=== PATIENT | male | born 1935 | race Caucasian/White ===

== ENCOUNTER 2018-10-22 15:17 | Emergency (ER) | payer OTHER ==
[~2018-10-22] VITALS: Ht 182.9 cm; Wt 86.2 kg
[2018-10-22] MEDS ORDERED: cloNIDine HCL 0.1 MG TAB PO ONE (16:00)
[2018-10-22 17:33] LABS: Urine Blood 3+ /uL (Negative); Urine Specific Gravity 1.009 (1.001-1.035); Urine WBC 30 /hpf (0 - 3)
[2018-10-22 17:35] LABS: Urine Bacteria NONE SEEN /hpf (None Seen)
[2018-10-22 17:50] LABS: INR 1.2 (0.9-1.15); Prothrombin Time 12.7 sec (9.27-12.13)
[2018-10-22 19:27] VITALS: BP 142/73
[2018-10-22] MEDS ORDERED: HYDROcodone-ACET 10/325MG TAB PO ONE (19:30)
== END 2018-10-22 19:33 | disposition home or self-care (01) ==
LOC: ER 15:29
DX: N39.0 Urinary tract infection, site not specified (principal); I48.91 Unspecified atrial fibrillation; E78.5 Hyperlipidemia, unspecified; I10 Essential (primary) hypertension; Z85.46 Personal history of malignant neoplasm of prostate; Z87.891 Personal history of nicotine dependence
CPT/HCPCS: 36415; 51702; 81001; 85610; 85730

== ENCOUNTER → 2018-10-23 | Emergency (ER) | payer OTHER | END | disposition left against medical advice (07) | LOC: ER 00:38 | DX: R10.9 Unspecified abdominal pain (principal); Z53.21 Procedure and treatment not carried out due to patient leaving prior to being seen by health care provider ==

== ENCOUNTER 2020-08-17 14:17 | Inpatient (IN) | payer OTHER ==
[~2020-08-17] VITALS: Ht 167.6 cm; Wt 82.8 kg
[2020-08-17] MEDS ORDERED: PROPOFOL 0 ML IV ONE (14:26)
[2020-08-17] MEDS ORDERED: MIDAZOLAM DRIP 50 mg/50mL 0 ML IV ONE (14:26)
[2020-08-17] MEDS ORDERED: SODIUM CHLORIDE 0.9% 1,000 ML IV ONE (14:45)
[2020-08-17 16:31] LABS: Hemoglobin 9.4 g/dL (13.5-17.5); Mean Corpuscular Hemoglobin 29.7 pg (28.0-32.0); Mean Corpuscular Hgb Conc. 33.6 g/dL (32.0-36.0); Mean Corpuscular Volume 88.3 fL (80.0-100.0); Platelet Count (auto) 104 10^3/uL (140-450); Red Blood Cells 3.17 10^6/uL (4.5-5.90); Red Cell Distribution Width 18.9 % (11.8-14.3); White Blood Cell 17.9 10^3/uL (4.4-10.8)
[2020-08-17 16:34] LABS: INR 1.34 (0.9-1.15); Partial Thromboplastin Time 46.1 sec (23.0-31.2)
[2020-08-17 16:35] LABS: Albumin 2.1 g/dL (3.4-5.0); Calcium 7.6 mg/dL (8.5-10.1); Potassium 3.3 mmol/L (3.5-5.1)
[2020-08-17 16:37] LABS: Basophils % (manual) 0 (0.0-2.0); Blast Cells 0; Eosinophils % (manual) 0 (0-7); Promyelocytes % 0; Reactive Lymphocytes 0
[2020-08-17 16:42] LABS: BUN/Creatinine Ratio 20.3; Total Protein 4.8 g/dL (6.4-8.2)
[2020-08-17] MEDS ORDERED: ENOXAPARIN SOD 80 MG/0.8ML SYRINGE SC ONE (17:45)
[2020-08-17] MEDS: NOREPINEPHRINE 8 MG/250ML KIT 250 ML IV SCH (18:11)
[2020-08-17 18:30] LABS: Band Neutrophils % (manual) 16; Lymphocytes % (manual) 1 (10.0-50.0); Metamyelocytes % 3; Monocytes % (manual) 4 (0-12); Myelocytes % 1
[2020-08-17] MEDS ORDERED: POTASSIUM CHL 20MEQ/100ML 100 ML IV ONE (19:15)
[2020-08-17] MEDS ORDERED: NITROGLYCERIN 0.4 MG SL TAB SL PRN ×2 (19:15→21:00)
[2020-08-17] MEDS ORDERED: MORPHINE SULF INJ 2 MG/ML SYRINGE 1ML IV PRN ×3 (19:15→21:00)
[2020-08-17] MEDS ORDERED: DABI1CAP PO (19:24)
[2020-08-17] MEDS ORDERED: ATOR80TA PO (19:24)
[2020-08-17] MEDS ORDERED: HCTZ25T PO (19:24)
[2020-08-17] MEDS ORDERED: OMEP20TA PO (19:30)
[2020-08-17] MEDS ORDERED: MULT-1066 PO (19:30)
[2020-08-17] MEDS ORDERED: CYAN1TAB11 PO (19:30)
[2020-08-17] MEDS ORDERED: MORP1TAB12 PO (19:30)
[2020-08-17] MEDS ORDERED: CHOL100029 PO (19:30)
[2020-08-17] MEDS ORDERED: DOCU100T7 PO (19:30)
[2020-08-17] MEDS ORDERED: POTA10TA75 PO (19:30)
[2020-08-17] MEDS ORDERED: MIRA25TA PO (19:30)
[2020-08-17] MEDS ORDERED: FERR-7 PO (19:30)
[2020-08-17] MEDS ORDERED: HYDR-531 PO (19:30)
[2020-08-17] MEDS ORDERED: COLC1CAP PO (19:30)
[2020-08-17] MEDS ORDERED: FAMO40TA7 PO (19:31)
[2020-08-17] MEDS ORDERED: VANCOMYCIN PER PHARMACY 0 MG IV SCH (21:00)
[2020-08-17] MEDS ORDERED: LORazepam 0.5 MG TAB PO PRN (21:00)
[2020-08-17] MEDS ORDERED: ALUM & MAG HYDROX-SIMETH LIQ(MAALOX) 30 ML PO PRN (21:00)
[2020-08-17] MEDS ORDERED: SODIUM CHLORIDE 0.9% 1,000 ML IV SCH (21:00)
[2020-08-17] MEDS ORDERED: ACETAMINOPHEN 325 MG TAB PO PRN (21:00)
[2020-08-17] MEDS ORDERED: LACTATED RINGER'S 1,000 ML IV ONE (21:00)
[2020-08-17] MEDS ORDERED: CHOLECALCIFEROL (VITD3) 2,000 UNIT CAP PO ONE (21:15)
[2020-08-17] MEDS ORDERED: MULTIPLE VITAMIN TAB PO ONE (21:15)
[2020-08-17] MEDS ORDERED: POTASSIUM CHL 20 Meq TABLET PO ONE (21:15)
[2020-08-17] MEDS ORDERED: CYANOCOBALAMIN 500 MCG TAB PO ONE (21:15)
[2020-08-17] MEDS ORDERED: ALBUMIN 25% 100 ML IV ONE (21:15)
[2020-08-17] MEDS ORDERED: levoFLOXacin 500MG 100 ML IV ONE (21:30)
[2020-08-17] MEDS ORDERED: ATORVASTATIN 20 MG TAB PO SCH (22:00)
[2020-08-17] MEDS ORDERED: AMIODARONE 450mg/250ml AE 250 ML IV ONE (22:57)
[2020-08-17] MEDS ORDERED: AMIODARONE HCL (50 MG/ ML) 3 ML VIAL IV ONE (22:57)
[2020-08-17] MEDS ORDERED: VANCOMYCIN 1GM/250ML 250 ML IV ONE (23:00)
[2020-08-17] MEDS ORDERED: AMIODARONE 450mg/250ml AE 250 ML IV SCH (23:15)
[2020-08-17] MEDS ORDERED: AMIODARONE HCL 150 MG in D5W 5% 100 ML IV ONE (23:15)
[2020-08-17] MEDS: FAMOTIDINE (10MG/ML) 2ML VL IV SCH (23:22)
[2020-08-17] MEDS: FERROUS SULFATE 300 MG/5 ML ORAL LIQ PO SCH (23:22)
[2020-08-17] MEDS: OXYBUTYNIN CHL 5 MG TAB PO SCH (23:22)
[2020-08-18 02:32] LABS: Urine Amorphous Crystal FEW /hpf (None Seen); Urine Bacteria MANY /hpf (None Seen); Urine Blood 3+ /uL (Negative); Urine Mucus FEW (None Seen); Urine Specific Gravity 1.017 (1.001-1.035); Urine WBC 1447 /hpf (0 - 3); Urine WBC Clumps PRESENT /hpf (None Seen)
[2020-08-18 02:48] LABS: Amphetamine Screen, Urine NEGATIVE (NEGATIVE); Barbiturate Scree,Urine NEGATIVE (NEGATIVE); Benzodiazephine Screen, Urine NEGATIVE (NEGATIVE); Cannabinoid Screen, Urine NEGATIVE (NEGATIVE); Cocaine Screen, Urine NEGATIVE (NEGATIVE); Opiate Scree,Urine POSITIVE (NEGATIVE); Phencyclidine Screen, Urine NEGATIVE (NEGATIVE)
[2020-08-18 02:57] LABS: Alcohol, Urine < 3.0 mg/dL (0-10)
[2020-08-18] MEDS: AMIODARONE 450mg/250ml AE 250 ML IV SCH ×3 (05:17→23:27)
[2020-08-18] MEDS: ALBUMIN 25% 100 ML IV SCH ×3 (05:30→13:50)
[2020-08-18] MEDS: FERROUS SULFATE 300 MG/5 ML ORAL LIQ PO SCH ×3 (06:03→22:39)
[2020-08-18 08:22] LABS: BUN/Creatinine Ratio 18.7; Calcium 7.4 mg/dL (8.5-10.1); Potassium 3.6 mmol/L (3.5-5.1)
[2020-08-18] MEDS: OXYBUTYNIN CHL 5 MG TAB PO SCH ×2 (09:37→22:39)
[2020-08-18] MEDS: MULTIPLE VITAMIN TAB PO SCH ×2 (09:37→09:55)
[2020-08-18] MEDS: CYANOCOBALAMIN 500 MCG TAB PO SCH ×2 (09:37→09:55)
[2020-08-18] MEDS: POTASSIUM CHL 20 Meq TABLET PO SCH ×2 (09:38→09:55)
[2020-08-18] MEDS: CHOLECALCIFEROL (VITD3) 2,000 UNIT CAP PO SCH ×2 (09:38→09:55)
[2020-08-18] MEDS ORDERED: levoFLOXacin 250MG 50 ML IV SCH (10:00)
[2020-08-18] MEDS: MEROPENEM 1GM IVPB 100 ML IV SCH ×2 (13:23→22:40)
--- NOTE | 2020-08-18 13:37 | NUR ---
Faxed clinical packet to [facility] [phone] requesting transfer, to their facility.
[2020-08-18] MEDS: ONDANSETRON HCL 4 MG/2 ML VIAL IV PRN (14:24)
--- NOTE | 2020-08-18 15:26 | NUR ---
08/18/20 1520 Called [facility] [phone] spoke with Terra food and beverage analyst, stated they received the transfer packet, Trinh HALLMAN has not started working on the transfer, Chart still being reviewed to see if the patient is stable for transfer. [facility] he is still in the ER bed 1025.
[2020-08-18] MEDS: NOREPINEPHRINE 8 MG/250ML KIT 250 ML IV SCH (17:47)
[2020-08-18 21:42] LABS: Lactic Acid w/Reflex 2.5 mmol/L (0.4-2.0)
[2020-08-19] MEDS: ONDANSETRON HCL 4 MG/2 ML VIAL IV PRN ×3 (00:42→23:42)
[2020-08-19] MEDS: FERROUS SULFATE 300 MG/5 ML ORAL LIQ PO SCH ×4 (06:11→22:24)
[2020-08-19 07:11] LABS: Hemoglobin 8.3 g/dL (13.5-17.5); Red Blood Cells 2.83 10^6/uL (4.5-5.90)
[2020-08-19 07:14] LABS: Hematocrit 25.3 % (41.0-53.0); Mean Corpuscular Hemoglobin 29.4 pg (28.0-32.0); Mean Corpuscular Volume 89.2 fL (80.0-100.0); Platelet Count (auto) 50 10^3/uL (140-450); Red Cell Distribution Width 19.7 % (11.8-14.3)
[2020-08-19 07:31] LABS: Basophils % (manual) 0 (0.0-2.0); Blast Cells 0; Eosinophils % (manual) 0 (0-7); Myelocytes % 0; Promyelocytes % 0; Reactive Lymphocytes 0
[2020-08-19 07:33] LABS: Albumin 2.4 g/dL (3.4-5.0); BUN/Creatinine Ratio 18.4; Calcium 7.1 mg/dL (8.5-10.1); Magnesium 1.8 mg/dL (1.6-2.6); Potassium 3.8 mmol/L (3.5-5.1)
[2020-08-19 07:38] LABS: Bilirubin, Total 1.4 mg/dL (0.2-1.0)
[2020-08-19 07:58] LABS: Band Neutrophils % (manual) 13; Lymphocytes % (manual) 4 (10.0-50.0); Metamyelocytes % 1; Monocytes % (manual) 3 (0-12)
[2020-08-19] MEDS ORDERED: SODIUM BICARBONATE 50ML VIAL 100 ML in D5W 5% 1,000 ML IV ONE (10:00)
[2020-08-19] MEDS ORDERED: MAGNESIUM SULFATE 1GM/100ML 100 ML IV ONE (11:15)
[2020-08-19] MEDS: MEROPENEM 500MG IVPB 50 ML IV SCH ×2 (14:13→21:57)
[2020-08-19 14:28] LABS: Hematocrit 25.2 % (41.0-53.0); Hemoglobin 8.2 g/dL (13.5-17.5); Mean Corpuscular Hemoglobin 28.5 pg (28.0-32.0); Mean Corpuscular Hgb Conc. 32.5 g/dL (32.0-36.0); Mean Corpuscular Volume 87.9 fL (80.0-100.0); Platelet Count (auto) 45 10^3/uL (140-450); Red Blood Cells 2.87 10^6/uL (4.5-5.90)
[2020-08-19 14:33] LABS: White Blood Cell 36.4 10^3/uL (4.4-10.8)
[2020-08-19 14:35] LABS: Basophils % (manual) 0 (0.0-2.0); Blast Cells 0; Calcium 7.1 mg/dL (8.5-10.1); Eosinophils % (manual) 0 (0-7); Metamyelocytes % 0; Myelocytes % 0; Potassium 3.6 mmol/L (3.5-5.1); Promyelocytes % 0; Reactive Lymphocytes 0
[2020-08-19 14:41] LABS: BUN/Creatinine Ratio 21.8
[2020-08-19 14:50] LABS: Band Neutrophils % (manual) 12; Lymphocytes % (manual) 8 (10.0-50.0); Monocytes % (manual) 5 (0-12)
--- NOTE | 2020-08-19 15:30 | NUR ---
08/19/20 1530 Called [facility] and spoke with Trish java programmer analyst, stated per Mary Ellen Quigley CM, still reviewing the chart regarding the transfer and gave in patient auth for 08/20/2020 @ 1000am #[id number]
[2020-08-19] MEDS: CHOLECALCIFEROL (VITD3) 2,000 UNIT CAP PO SCH (16:12)
[2020-08-19] MEDS: CYANOCOBALAMIN 500 MCG TAB PO SCH (16:12)
[2020-08-19] MEDS: OXYBUTYNIN CHL 5 MG TAB PO SCH ×2 (16:13→22:23)
[2020-08-19] MEDS: MULTIPLE VITAMIN TAB PO SCH (16:13)
--- NOTE | 2020-08-19 16:27 | NUR ---
Received a call from the patients daughter Key stating that she has not been able to talk to anyone in the ER about her Dad, and ask if we could get him a room because he has fortunato lying on the gurney for3 days. Stated to her I will transfer the call to the call the ER and she can talk with the nurse. Transferred the call to the Er and spoke with the nurse Wick, explain to her the daughter concerns, stated the patient has been downgraded to [facility], but there are no beds, stated she will try and get him a hospital bed, Stated she will call the daughter on the other phone gave number [phone]. Hung up from the nurse and told the patient that the Nurse Wick will call her in a few minutes
--- NOTE | 2020-08-19 16:38 | NUR ---
SWALLOW EVALUATED. PATIENT HAS NATURAL TEETH UPPER AND LOWER. PATIENT ABLE TO FOLLOW ONE STEP COMMANDS. PATIENT ABLE TO TOLERATE MECHANICAL SOFT DIET TEXTURE WITH THIN LIQUIDS WITH NO OVERT SIGNS OR SYMPTOMS OF ASPIRATIONS. NURSING NOTIFIED.
[2020-08-19] MEDS: FAMOTIDINE (10MG/ML) 2ML VL IV SCH (22:23)
[2020-08-19] MEDS: AMIODARONE HCL 200 MG TAB PO SCH (22:23)
[2020-08-19 23:14] VITALS: BP 141/76
--- NOTE | 2020-08-19 23:14 | NUR ---
Telemetry admit from [facility] admitted to Telemetry unit. Patient oriented to TRES LEMON RN primary RN, unit, room, bed, and unit policies regarding patient care and visiting hours. Patient now on continuous telemetry monitoring, tele box #50 and telemetry reading on arrival to unit is 64. Patient placed on bedside oxygen 2liters via nasal cannula weighed by bedscale and encouraged to call if they need something. safety measures in place bed in lowest position side rails up x2 and call light with in reach. All questions and concerns addressed, patient verbalized understanding.
[2020-08-19 23:20] VITALS: BP 141/76
[2020-08-20 05:00] VITALS: BP 117/69
[2020-08-20 07:23] LABS: Hematocrit 25.5 % (41.0-53.0); Hemoglobin 8.6 g/dL (13.5-17.5); Mean Corpuscular Hemoglobin 29.4 pg (28.0-32.0); Mean Corpuscular Hgb Conc. 33.8 g/dL (32.0-36.0); Platelet Count (auto) 48 10^3/uL (140-450); Red Blood Cells 2.93 10^6/uL (4.5-5.90); Red Cell Distribution Width 19.9 % (11.8-14.3); White Blood Cell 23.8 10^3/uL (4.4-10.8)
[2020-08-20 07:27] LABS: INR 1.03 (0.9-1.15)
[2020-08-20 07:35] LABS: Basophils % (manual) 0 (0.0-2.0); Blast Cells 0; Eosinophils % (manual) 0 (0-7); Metamyelocytes % 0; Myelocytes % 0; Promyelocytes % 0; Reactive Lymphocytes 0
[2020-08-20 07:37] LABS: Potassium 3.3 mmol/L (3.5-5.1)
--- NOTE | 2020-08-20 07:40 | NUR ---
RECEIVED PATIENT FROM NOC SHIFT RN, AWAKE, ALERT AND ORIENTED X4. DENIES PAIN, NO SOB OR S/S DISTRESS NOTED. PLAN OF CARE DISCUSSED. ENCOURAGED PATIENT TO CALL FOR ASSISTANCE PRN, BED IN LOCKED AND LOWEST POSITION WITH CALL LIGHT WITHIN REACH BENSON CATHETER DRAINING AND INTACT BELOW BLADDER W/O KINKS. WILL CONTINUE TO MONITOR Q1HR AND PRN
[2020-08-20 07:45] LABS: Albumin 2.3 g/dL (3.4-5.0); BUN/Creatinine Ratio 20.9; Bilirubin, Total 0.9 mg/dL (0.2-1.0); Calcium 7.5 mg/dL (8.5-10.1); Magnesium 2.3 mg/dL (1.6-2.6)
[2020-08-20 07:58] VITALS: BP 131/69
[2020-08-20 08:00] VITALS: BP 131/69
[2020-08-20 08:20] LABS: Band Neutrophils % (manual) 3; Lymphocytes % (manual) 4 (10.0-50.0); Monocytes % (manual) 4 (0-12)
[2020-08-20] MEDS: OXYBUTYNIN CHL 5 MG TAB PO SCH ×2 (09:20→22:56)
[2020-08-20] MEDS: AMIODARONE HCL 200 MG TAB PO SCH ×2 (09:20→22:56)
[2020-08-20] MEDS: MULTIPLE VITAMIN TAB PO SCH (09:21)
[2020-08-20] MEDS: CYANOCOBALAMIN 500 MCG TAB PO SCH (09:21)
[2020-08-20] MEDS: CHOLECALCIFEROL (VITD3) 2,000 UNIT CAP PO SCH (09:21)
[2020-08-20] MEDS: MEROPENEM 500MG IVPB 50 ML IV SCH ×2 (09:33→22:56)
--- NOTE | 2020-08-20 09:55 | NUR ---
PARTIAL BED CHANGE. BOWEL MOVEMENT NOTED WITH DARK LOOSE STOOL.
--- NOTE | 2020-08-20 11:00 | NUR ---
DR GEORGES AT BEDSIDE, DISCUSSED PLAN TO TRANSFER PATIENT TO [facility]. PT. VERBALIZED UNDERSTANDING.
[2020-08-20] MEDS ORDERED: POTASSIUM CHL 20 Meq TABLET PO ONE (11:45)
[2020-08-20] MEDS: SODIUM CHLORIDE 0.9% 1,000 ML IV SCH (12:00)
[2020-08-20] MEDS: Ensure HIGH Protein Chocolate 8oz Bottle PO SCH ×2 (12:00→18:30)
--- NOTE | 2020-08-20 12:17 | NUR ---
08/20/20 1217 Faxed clinical packet to [facility] [phone] requesting transfer to [facility] with post stabilization form.
--- NOTE | 2020-08-20 12:25 | NUR ---
Received a call from Emma at [facility] [phone], asking if I would fax clinicals to her because she had not received anything yet, verbalized understanding and gave update verbal report on the patient and faxed clinicals as requested. Addendum: 08/20/20 at 1427 by Ching Monsivais RN, CM disregard wrong patient
[2020-08-20 12:30] VITALS: BP 155/74
--- NOTE | 2020-08-20 13:45 | NUR ---
Called Emma HALLMAN at [facility] [phone] and stated she received the clinicals but wanted the er notes to see if it showed the elevated Hr on the patient, stated I would fax. Addendum: 08/20/20 at 1428 by Ching Monsivais RN, CM disregard wrong patient
[2020-08-20] MEDS: FERROUS SULFATE 300 MG/5 ML ORAL LIQ PO SCH ×2 (14:02→22:56)
--- NOTE | 2020-08-20 14:46 | NUR ---
Nutrition consult/assessment Notes please see attached link for complete assessment. [employer] needs BW 86 [id number] kcals (23-25 kcal/kgBW), Est Protein needs: 86-94 gms/day (1.0-1.1 gm/kgBW) d/t pt elev RFTs. Will continue to monitor and reassess prn. Addendum: 08/20/20 at [address] Amended: Links added.
--- NOTE | 2020-08-20 16:01 | NUR ---
Assessment Patient is an 84-year-old male, patient is alert and oriented. Patient cognitive abilities are intact. Patient stated that he can do all ADLs independently, patient stated that he uses a walker for ambulation. Patient stated that he started to feel weak a few days ago. Patient stated that he receives social security as income. Patient stated that he lives with his (Gela [phone]) and daughter Mary Ellen. Patient stated that he will return home post discharge. Patient stated that his daughter has transportation post discharge. Patient stated that he receptive to receive Advance Directive forms to fill out. Discharge planning: SW will provide Advance Directive forms to patient. SW will put in for home health for Physical Therapy and possibly IV or PO therapy for sepsis diagnosis. Addendum: 08/20/20 at 1602 by DOC BEATTY Amended: Links added.
[2020-08-20 16:15] VITALS: BP 113/69
--- NOTE | 2020-08-20 16:15 | NUR ---
08/20/20 161Cristina Called [facility] [phone] and spoke with Jason it architecture analyst, stated one of the CM'S called in today so they are short. Stated he will assign the transfer to [facility] to work on the transfer, stated they will send the paper auth if the patient doesn't get transferred ton[facility]red[facility].
[2020-08-20] MEDS: HYDROcodone-ACET 5/325MG TAB PO PRN (18:34)
[2020-08-20 22:00] VITALS: BP_SYST 113; BP_SYST 115; BP_DIAS 51; BP_DIAS 64
--- NOTE | 2020-08-21 00:50 | NUR ---
IV insertion IV access obtained, via clean sterile technique by inserting 22 gauge catheter at left forearm after 1 attempt. IV secured properly. No trauma to site. Patient tolerated procedure well. Will continue to monitor patient Q1 and PRN. Addendum: 08/22/20 at 0405 by Dahlia Gomez RN DATE 08/22/2020 TIME 0050
[2020-08-21 05:15] VITALS: BP 103/64
[2020-08-21 06:51] LABS: Hemoglobin 8.2 g/dL (13.5-17.5); Red Blood Cells 2.73 10^6/uL (4.5-5.90)
[2020-08-21 06:56] LABS: Hematocrit 23.9 % (41.0-53.0); Mean Corpuscular Hemoglobin 30.1 pg (28.0-32.0); Mean Corpuscular Hgb Conc. 34.3 g/dL (32.0-36.0); Mean Corpuscular Volume 87.7 fL (80.0-100.0); Platelet Count (auto) 45 10^3/uL (140-450); Red Cell Distribution Width 19.8 % (11.8-14.3); White Blood Cell 18.9 10^3/uL (4.4-10.8)
[2020-08-21] MEDS: FERROUS SULFATE 300 MG/5 ML ORAL LIQ PO SCH ×3 (06:57→22:22)
[2020-08-21 07:05] LABS: Basophils % (manual) 0 (0.0-2.0); Blast Cells 0; Metamyelocytes % 0; Myelocytes % 0; Promyelocytes % 0; Reactive Lymphocytes 0
--- NOTE | 2020-08-21 07:05 | NUR ---
OPENING SHIFT NOTE ASSUMED CARE OF PATIENT FROM SENIOR ASSOCIATE RN MANJINDER. PATIENT IS AWAKE, ALERT, AND ORIENTED X4. PATIENT HAS NO S/S OF DISTRESS/SOB OR PAIN. INSTRUCTED PATIENT ON POC, PATIENT VERBALIZED UNDERSTANDING. BED IS IN LOWEST POSITION WITH SIDE RAILS RAISED X2, BED WHEELS LOCKED, BENSON IS HANGING BELOW BLADDER AND IS DRAINING YELLOW URINE, AND CALL LIGHT IS WITHIN REACH. WILL CONTINUE TO MONITOR.
[2020-08-21 07:09] LABS: Potassium 3.7 mmol/L (3.5-5.1)
[2020-08-21 07:13] LABS: Calcium 7.7 mg/dL (8.5-10.1)
[2020-08-21 07:18] LABS: Bilirubin, Total 0.7 mg/dL (0.2-1.0); Total Protein 4.7 g/dL (6.4-8.2)
[2020-08-21 07:45] LABS: Band Neutrophils % (manual) 2; Eosinophils % (manual) 1 (0-7); Lymphocytes % (manual) 3 (10.0-50.0); Monocytes % (manual) 15 (0-12)
[2020-08-21] MEDS: Ensure HIGH Protein Chocolate 8oz Bottle PO SCH ×3 (08:00→17:34)
[2020-08-21 08:09] VITALS: BP 144/76
[2020-08-21 08:26] VITALS: BP 144/76
[2020-08-21] MEDS ORDERED: FUROSEMIDE 40 MG/4 ML VIAL IV ONE (09:45)
--- NOTE | 2020-08-21 09:45 | NUR ---
PATIENT TAKEN TO [facility]LE[facility] MEDICINE FOR MAG 3 SCAN VIA BED. PATIENT HAS NO S/S OF DISTRESS AT THIS TIME.
--- NOTE | 2020-08-21 09:46 | NUR ---
RECEIVED CALL FROM WHEEL ADJUSTER REBEKA. PER [facility] HOLD MORNING MEDICATIONS EXCEPT FOR AMIODARONE AND MEROPENEM.
[2020-08-21] MEDS: SODIUM CHLORIDE 0.9% 1,000 ML IV SCH (09:47)
[2020-08-21] MEDS: AMIODARONE HCL 200 MG TAB PO SCH ×2 (09:49→22:22)
[2020-08-21] MEDS: HYDROcodone-ACET 5/325MG TAB PO PRN (09:49)
[2020-08-21] MEDS: MEROPENEM 500MG IVPB 50 ML IV SCH ×2 (09:50→22:22)
[2020-08-21] MEDS: CYANOCOBALAMIN 500 MCG TAB PO SCH (10:00)
[2020-08-21] MEDS: CHOLECALCIFEROL (VITD3) 2,000 UNIT CAP PO SCH (10:00)
[2020-08-21] MEDS: OXYBUTYNIN CHL 5 MG TAB PO SCH ×2 (10:00→22:22)
[2020-08-21] MEDS: MULTIPLE VITAMIN TAB PO SCH (10:00)
--- NOTE | 2020-08-21 11:05 | NUR ---
RECEIVED CALL FROM [facility]. PER [facility] RIPSHEAR OPERATOR THEY DO NO NOT HAVE A BED AT THIS TIME. UPDATED THEM ON PATIENT'S STATUS. THEY WILL TRY TOMORROW FOR A BED.
--- NOTE | 2020-08-21 11:10 | NUR ---
PATIENT BACK FROM [facility]. PATIENT HAS NO S/S OF DISTRESS/SOB OR PAIN AT THIS TIME. WILL CONTINUE TO MONITOR.
--- NOTE | 2020-08-21 11:15 | NUR ---
08/21/20 1115 Called [facility] [phone] spoke with Chelsey quality assurance qa lab analyst stated they received clinicals, per Demian CM are still being reviewed, stated there are no TELE or ICU beds in [place] or [place] at this time.
--- NOTE | 2020-08-21 11:35 | NUR ---
MD GEORGES AT BEDSIDE UPDATED MD ON PATIENTS STATUS INCLUDING NO BED AT [facility] FOR TODAY. MD IS AWARE AND ORDERED PHYSICAL THERAPY FOR PATIENT.
[2020-08-21 13:00] VITALS: BP 122/50
[2020-08-21] MEDS ORDERED: POTASSIUM CHL 20 Meq TABLET PO ONE (14:45)
--- NOTE | 2020-08-21 15:04 | NUR ---
Faxed updated clinicals with Transfer Request to [facility] [phone], with order for transfer and post stabilization form.
[2020-08-21 17:00] VITALS: BP 103/56
--- NOTE | 2020-08-21 18:58 | NUR ---
CLOSING SHIFT NOTE PATIENT HAS NO S/S OF DISTRESS/SOB OR PAIN AT THIS TIME. WILL ENDORSE CARE TO MATERIALS HANDLING EQUIPMENT OPERATOR MADY DUNBAR.
[2020-08-21 22:00] VITALS: BP 129/78
[2020-08-21] MEDS: FAMOTIDINE (10MG/ML) 2ML VL IV SCH (22:22)
[2020-08-22] MEDS: HYDROcodone-ACET 5/325MG TAB PO PRN ×2 (00:49→19:47)
[2020-08-22] MEDS: SODIUM CHLORIDE 0.9% 1,000 ML IV SCH (04:00)
[2020-08-22 05:00] VITALS: BP 114/66
[2020-08-22 06:25] LABS: Hemoglobin 7.9 g/dL (13.5-17.5)
[2020-08-22] MEDS: FERROUS SULFATE 300 MG/5 ML ORAL LIQ PO SCH ×3 (06:27→22:57)
[2020-08-22 06:33] LABS: Hematocrit 24.1 % (41.0-53.0); Mean Corpuscular Hemoglobin 29.6 pg (28.0-32.0); Mean Corpuscular Hgb Conc. 32.9 g/dL (32.0-36.0); Mean Corpuscular Volume 89.9 fL (80.0-100.0); Platelet Count (auto) 62 10^3/uL (140-450); Red Blood Cells 2.68 10^6/uL (4.5-5.90); White Blood Cell 18.6 10^3/uL (4.4-10.8)
[2020-08-22] MEDS: DOCUSATE SOD 100 MG CAP PO PRN (06:37)
--- NOTE | 2020-08-22 06:55 | NUR ---
End of Shift Note Will endorse care to dayshift RN. At this time patient has no s/s of distress or SOB.
[2020-08-22 07:00] LABS: Albumin 1.9 g/dL (3.4-5.0); BUN/Creatinine Ratio 21.8; Calcium 7.7 mg/dL (8.5-10.1); Potassium 3.7 mmol/L (3.5-5.1)
[2020-08-22 07:05] LABS: Red Cell Distribution Width 20.4 % (11.8-14.3)
[2020-08-22 07:06] LABS: Basophils % (manual) 0 (0.0-2.0); Blast Cells 0; Promyelocytes % 0; Reactive Lymphocytes 0
[2020-08-22 07:09] LABS: Bilirubin, Total 0.6 mg/dL (0.2-1.0); Total Protein 4.7 g/dL (6.4-8.2)
--- NOTE | 2020-08-22 07:10 | NUR ---
OPENING SHIFT NOTE ASSUMED CARE OF PATIENT FROM INDUSTRIAL CLEANING TECHNICIAN RN MANJINDER. PATIENT IS AWAKE, ALERT, AND ORIENTED X4. PATIENT HAS NO S/S OF DISTRESS/SOB OR PAIN. INSTRUCTED PATIENT ON POC, PATIENT VERBALIZED UNDERSTANDING. BED IS IN LOWEST POSITION WITH SIDE RAILS RAISED X2, BED WHEELS LOCKED, BENSON IS HANGING BELOW BLADDER AND IS DRAINING YELLOW URINE, AND CALL LIGHT IS WITHIN REACH. WILL CONTINUE TO MONITOR.
[2020-08-22] MEDS: Ensure HIGH Protein Chocolate 8oz Bottle PO SCH ×3 (08:00→17:41)
[2020-08-22 09:00] VITALS: BP 113/65
[2020-08-22] MEDS: CHOLECALCIFEROL (VITD3) 2,000 UNIT CAP PO SCH (10:00)
[2020-08-22] MEDS: MEROPENEM 500MG IVPB 50 ML IV SCH (10:20)
[2020-08-22] MEDS: AMIODARONE HCL 200 MG TAB PO SCH ×2 (10:21→22:57)
[2020-08-22] MEDS: OXYBUTYNIN CHL 5 MG TAB PO SCH ×2 (10:21→22:57)
[2020-08-22] MEDS: CYANOCOBALAMIN 500 MCG TAB PO SCH (10:21)
[2020-08-22] MEDS: MULTIPLE VITAMIN TAB PO SCH (10:21)
--- NOTE | 2020-08-22 10:35 | NUR ---
MD PEOPLES AT BEDSIDE UPDATED MD ON PATIENT'S STATUS INCLUDING MAG 3 SCAN MD IS AWARE AND ORDERED NORMAL SALINE TO BE STOPPED. WILL FOLLOW THROUGH WITH ORDERS.
[2020-08-22 13:00] VITALS: BP 118/63
[2020-08-22 14:33] LABS: Band Neutrophils % (manual) 3; Eosinophils % (manual) 1 (0-7); Lymphocytes % (manual) 4 (10.0-50.0); Metamyelocytes % 3; Monocytes % (manual) 10 (0-12); Myelocytes % 1
[2020-08-22] MEDS ORDERED: PRADAXA 110 MG PO SCH (15:15)
[2020-08-22 17:00] VITALS: BP 127/80
--- NOTE | 2020-08-22 18:45 | NUR ---
CLOSING SHIFT NOTE PATIENT HAS NO S/S OF DISTRESS/SOB OR PAIN AT THIS TIME. WILL ENDORSE CARE TO KEY ACCOUNT DIRECTOR MADY WRIGHT.
--- NOTE | 2020-08-22 19:47 | NUR ---
open note assumed care of pt upon entering room pt awake and alert on 2L nc with no distress noted or expressed. pt oriented to this nurse and updated on plan of care. pt bed locked, low and 2x rails up. pt has mckeon in place, secured, below the waist and draining. pt call light in reach, encouraged to call as needed. this nurse to round q1hr and prn.
[2020-08-22 22:00] VITALS: BP 107/63
[2020-08-22] MEDS: PRADAXA 110 MG PO SCH (22:00)
[2020-08-22] MEDS: MEROPENEM 1GM IVPB 100 ML IV SCH (22:57)
[2020-08-23 05:00] VITALS: BP 136/71
[2020-08-23] MEDS: ONDANSETRON HCL 4 MG/2 ML VIAL IV PRN (05:10)
[2020-08-23] MEDS: FERROUS SULFATE 300 MG/5 ML ORAL LIQ PO SCH ×3 (06:30→21:24)
--- NOTE | 2020-08-23 07:06 | NUR ---
OPENING SHIFT NOTE ASSUMED CARE OF PATIENT FROM GOLD ASSAYER RN ADRIANA. PATIENT IS AWAKE, ALERT, AND ORIENTED X4. PATIENT HAS NO S/S OF DISTRESS/SOB OR PAIN. INSTRUCTED PATIENT ON POC, PATIENT VERBALIZED UNDERSTANDING. PATIENT'S HEELS HAVE BLANCHABLE REDNESS, POSIE BOOTS APPLIED BILATERALLY. BED IS IN LOWEST POSITION WITH SIDE RAILS RAISED X2, BED WHEELS LOCKED, BENSON IS HANGING BELOW BLADDER AND IS DRAINING YELLOW URINE, AND CALL LIGHT IS WITHIN REACH. WILL CONTINUE TO MONITOR.
[2020-08-23] MEDS: Ensure HIGH Protein Chocolate 8oz Bottle PO SCH ×3 (08:03→18:15)
[2020-08-23 09:00] VITALS: BP 121/71
[2020-08-23] MEDS: MULTIPLE VITAMIN TAB PO SCH (09:42)
[2020-08-23] MEDS: OXYBUTYNIN CHL 5 MG TAB PO SCH ×2 (09:42→21:25)
[2020-08-23] MEDS: AMIODARONE HCL 200 MG TAB PO SCH ×2 (09:42→21:25)
[2020-08-23] MEDS: CHOLECALCIFEROL (VITD3) 1,000UNIT=25mCg TAB PO SCH (09:43)
[2020-08-23] MEDS: CYANOCOBALAMIN 500 MCG TAB PO SCH (09:43)
[2020-08-23] MEDS: MEROPENEM 1GM IVPB 100 ML IV SCH ×2 (09:52→21:24)
[2020-08-23] MEDS: PRADAXA 110 MG PO SCH ×2 (09:56→21:25)
[2020-08-23 12:30] VITALS: BP 132/74
--- NOTE | 2020-08-23 14:22 | NUR ---
Nutrition Followup Note Wt 91.8kg Pt was sleeping with no family at bedside at time of rounds. Pt is with a fair appetite aeb pt with 67% po intake avg x 2 days per Rn note. Pt is also with Ensure HP TID. Pt is currently awaiting transfer to a SNF. Est Energy needs BW 86 [id number] kcals (23-25 kcal/kgBW), Est Protein needs: 86-94 gms/day (1.0-1.1 gm/kgBW) d/t pt elev RFTs. Will continue to monitor and reassess prn. Labs: Na 131L, BUN 37H, Creat 1.70H, Alb 1.9L, Ca 7.7L BM: Pt with 1 BMs 08/23 per Rn note Skin: BS 16 mod risk, full details in respite care provider note PES: Altered nutrition related lab values r.t current chronic medical conidtion aeb elev RFT mod hypoalb hypocalcemia Comments 1) consider ensure enlive 1 carton bid 2) consider megace if appetite is low 3) continue assistance with meals 4) continue current plan of care Expected Outcomes/Goals: pt will have improved labs F/u mod 3-5 days
[2020-08-23 17:00] VITALS: BP 139/69
--- NOTE | 2020-08-23 19:30 | NUR ---
ASSUMED CARE, PT. AWAKE, NO C/O PAIN, REPOSITIONED PT. NOT IN DISTRESS.
[2020-08-23] MEDS: FAMOTIDINE (10MG/ML) 2ML VL IV SCH (21:24)
[2020-08-23 21:40] VITALS: BP 106/71
[2020-08-24] MEDS: HYDROcodone-ACET 5/325MG TAB PO PRN (04:25)
[2020-08-24 05:00] VITALS: BP 144/76
[2020-08-24] MEDS: FERROUS SULFATE 300 MG/5 ML ORAL LIQ PO SCH ×3 (05:25→21:45)
[2020-08-24] MEDS: Ensure HIGH Protein Chocolate 8oz Bottle PO SCH ×2 (08:00→12:00)
--- NOTE | 2020-08-24 08:10 | NUR ---
Opening Shift Note Assumed care of patient, patient asleep, no s/s of distress/SOB. Nasal cannula in place at 2L. Call light within reach and bed at lowest position, will continue to monitor q1h.
[2020-08-24] MEDS: DOCUSATE SOD 100 MG CAP PO PRN (09:13)
[2020-08-24] MEDS: MULTIPLE VITAMIN TAB PO SCH (09:13)
[2020-08-24] MEDS: AMIODARONE HCL 200 MG TAB PO SCH ×2 (09:14→21:46)
[2020-08-24] MEDS: CYANOCOBALAMIN 500 MCG TAB PO SCH (09:15)
[2020-08-24] MEDS: OXYBUTYNIN CHL 5 MG TAB PO SCH (09:16)
[2020-08-24] MEDS: CHOLECALCIFEROL (VITD3) 1,000UNIT=25mCg TAB PO SCH (09:16)
[2020-08-24] MEDS: PRADAXA 110 MG PO SCH ×2 (09:17→21:45)
[2020-08-24] MEDS: MEROPENEM 1GM IVPB 100 ML IV SCH ×2 (09:18→21:45)
[2020-08-24 09:32] VITALS: BP_SYST 117; BP_SYST 125; BP_DIAS 73; BP_DIAS 82
--- NOTE | 2020-08-24 10:20 | NUR ---
DR. GEORGES AT BEDSIDE. PATIENT UPDATED ON POC, PER DOCTOR OXYBUTYNCHRISTIANO DC AND AWAITING A BED FOR PATIENT AT [facility].
[2020-08-24 10:54] LABS: Hematocrit 26.4 % (41.0-53.0); Hemoglobin 8.6 g/dL (13.5-17.5); Mean Corpuscular Hemoglobin 29.4 pg (28.0-32.0); Mean Corpuscular Hgb Conc. 32.6 g/dL (32.0-36.0); Mean Corpuscular Volume 90.4 fL (80.0-100.0); Platelet Count (auto) 194 10^3/uL (140-450); Red Blood Cells 2.92 10^6/uL (4.5-5.90); White Blood Cell 14.4 10^3/uL (4.4-10.8)
--- NOTE | 2020-08-24 10:59 | NUR ---
Physical therapy at bedside Per physical therapy patient unable to be moved to side of bed or chair due to pain of knees during mobility.
[2020-08-24 11:07] LABS: Red Cell Distribution Width 21.4 % (11.8-14.3)
[2020-08-24 11:09] LABS: Band Neutrophils % (manual) 0; Basophils % (manual) 0 (0.0-2.0); Blast Cells 0; Promyelocytes % 0; Reactive Lymphocytes 0
--- NOTE | 2020-08-24 11:30 | NUR ---
08/24/20 1132 Faxed to [facility] [phone] transfer to [facility] request, face sheet, labs, post stabilization forms, med list.
[2020-08-24 11:42] LABS: Potassium 3.9 mmol/L (3.5-5.1)
[2020-08-24 13:00] VITALS: BP 137/75
[2020-08-24 13:12] LABS: Eosinophils % (manual) 1 (0-7); Lymphocytes % (manual) 3 (10.0-50.0); Metamyelocytes % 4; Monocytes % (manual) 10 (0-12); Myelocytes % 1
[2020-08-24 17:00] VITALS: BP 133/72
--- NOTE | 2020-08-24 18:42 | NUR ---
CLOSING SHIFT NOTE PATIENT HAS NO S/S OF DISTRESS/SOB OR PAIN AT THIS TIME. WILL ENDORSE CARE TO MANUFACTURING MAINTENANCE TECHNICIAN MADY WIGGINS.
--- NOTE | 2020-08-24 19:35 | NUR ---
assumed care, pt. awake, repositioned pt. no c/o pain, not in distress.
[2020-08-24 21:33] VITALS: BP 125/74
[2020-08-25 05:11] VITALS: BP 134/59
[2020-08-25] MEDS: FERROUS SULFATE 300 MG/5 ML ORAL LIQ PO SCH ×2 (05:31→14:10)
[2020-08-25 07:17] LABS: Basophils # (auto) 0 10 ^3/uL (0-0.2); Basophils % (auto) 0.2 % (0.0-2.0); Eosinophils # (auto) 0.1 10 ^3/uL (0-0.8); Eosinophils % (auto) 0.5 % (0.0-7.0); Hematocrit 25.7 % (41.0-53.0); Hemoglobin 8.5 g/dL (13.5-17.5); Lymphocytes # (auto) 0.7 10 ^3/uL (0.4-5.4); Lymphocytes % (auto) 5.7 % (10.0-50.0); Mean Corpuscular Hemoglobin 29.7 pg (28.0-32.0); Monocytes # (auto) 1.2 10 ^3/uL (0-1.3); Monocytes % (auto) 9.9 % (0.0-12.0); Neutrophils # (auto) 10.4 10 ^3/uL (1.6-8.6); Neutrophils % (auto) 83.7 % (37.0-80.0); Platelet Count (auto) 251 10^3/uL (140-450); Red Blood Cells 2.86 10^6/uL (4.5-5.90); White Blood Cell 12.5 10^3/uL (4.4-10.8)
[2020-08-25 07:28] LABS: BUN/Creatinine Ratio 22.6; Calcium 8.3 mg/dL (8.5-10.1); Magnesium 2.2 mg/dL (1.6-2.6); Potassium 3.7 mmol/L (3.5-5.1)
[2020-08-25 07:45] LABS: Red Cell Distribution Width 20.9 % (11.8-14.3)
--- NOTE | 2020-08-25 08:00 | NUR ---
Opening Shift Note Assumed care of patient, awake and alert. No S/S of distress/SOB or pain. Bed in lowest/locked position, bed rails up x2, call light within reach. Instructed on POC and to call for assist PRN. Will continue to monitor for changes Q1hr and PRN.
[2020-08-25 09:00] VITALS: BP 123/75
[2020-08-25] MEDS: PRADAXA 110 MG PO SCH (09:32)
[2020-08-25] MEDS: ONDANSETRON HCL 4 MG/2 ML VIAL IV PRN (09:32)
[2020-08-25] MEDS: MEROPENEM 1GM IVPB 100 ML IV SCH (09:32)
[2020-08-25] MEDS: MULTIPLE VITAMIN TAB PO SCH (09:33)
[2020-08-25] MEDS: CYANOCOBALAMIN 500 MCG TAB PO SCH (09:33)
[2020-08-25] MEDS: Ensure HIGH Protein Chocolate 8oz Bottle PO SCH ×4 (09:33→18:14)
[2020-08-25] MEDS: AMIODARONE HCL 200 MG TAB PO SCH (09:33)
[2020-08-25] MEDS: CHOLECALCIFEROL (VITD3) 1,000UNIT=25mCg TAB PO SCH (09:34)
--- NOTE | 2020-08-25 09:56 | NUR ---
ROUNDS DR GEORGES AT BEDSIDE. NO NEW ORDERS. WILL CONTINUE TO MONITOR
--- NOTE | 2020-08-25 10:15 | NUR ---
PHYSICAL THERAPY P.T. AT BEDSIDE
[2020-08-25] MEDS: HYDROcodone-ACET 5/325MG TAB PO PRN (12:52)
--- NOTE | 2020-08-25 12:53 | NUR ---
FAMILY UPDATE UPDATED AFTER PASSWORD OBTAINED. ALL QUESTIONS/CONCERNS ANSWERED.
[2020-08-25 13:00] VITALS: BP 145/81
--- NOTE | 2020-08-25 14:55 | NUR ---
Received call from Jessica edi programmer analyst at [facility] stated the patient has fortunato accepted at [facility], stated she doesn't have a bed but will call the unit the patient is in when she gets one, transferred to the unit and gave the number for the unit.
--- NOTE | 2020-08-25 15:58 | NUR ---
[place] TRANSFER RECEIVED CALL FROM DWAIN FROM [facility] RE: PATIENT HAS BEEN ACCEPTED AT [facility] AND SHE WILL CALL BACK WHEN SHE HAS ACCEPTING AWAITING RETURN CALL
--- NOTE | 2020-08-25 16:16 | NUR ---
FAMILY UPDATE UPDATED FAMILY RE: PATIENT TRANSFER TO [facility].
[2020-08-25 16:34] VITALS: BP 145/81
[2020-08-25 16:58] VITALS: BP 144/87
--- NOTE | 2020-08-25 17:30 | NUR ---
POM PATIENT'S POM PICKED UP FROM PHARMACY. PATIENT AWAITING TRANSFER TO [facility]
--- NOTE | 2020-08-25 18:05 | NUR ---
LAB MRSA SWAB SENT TO LAB PER PROTOCOL
--- NOTE | 2020-08-25 18:09 | NUR ---
PHARMACY SPOKE WITH ELADIO [place] RE: PATIENT POM. PATIENT POM AT NURSE'S STATION D/T TRANSFER TO [facility]. PATIENT AWAITING ACCEPTING MD. PER FELIX; OK TO KEEP MEDS WITH NIGHT RN IN MED ROOM BECAUSE PHARMACY CLOSES AT 10:30PM. WILL INFORM NIGHT RN
--- NOTE | 2020-08-25 18:30 | NUR ---
[facility] CALL RECEIVED CALL FROM [facility] TRANSFER FROM [facility] RE: PATIENT RM 318, RECEIVING MD SIEGEL. REPORT # PER [facility] PICKUP AT [phone], CALL REPORT AFTER 2029. WILL ENDORSE TO REGISTRATION REPRESENTATIVE
--- NOTE | 2020-08-25 21:08 | NUR ---
CALLED AND GAVE REPORT TO MADY MORRIS AT [facility] ALL QUESTIONS ANSWERED. AWAITING INDUSTRIAL FABRIC CUTTER
[2020-08-25 22:00] VITALS: BP 153/86
--- NOTE | 2020-08-25 23:04 | NUR ---
PATIENT TRANSFERRED TO [facility] PATIENT A&O X's 4 with no s/s of distress and reports no pain. last VS BP 153/86 T97.5 RR 20 HR 77 97% on 2L via N.C. patient left with all personal belongings and discharge paperwork. patient reports that he will call his in the AM to notify her because she is sleeping right now. tele box 50 removed and sent to ICU. tele was called and notified. Patient left with IV and mckeon in place as ordered by .
== END 2020-08-25 23:04 | disposition short-term general hospital (02) | DRG 871 ==
LOC: EDBD 14:17 → EDUNIT# 14:17 → ER 14:17 → TELE 19:08 → TELE-WESTW 08-18 10:20
PROVIDERS: ADMIT Hospitalist; ATTEND Internal Medicine
DX: A41.51 Sepsis due to Escherichia coli [E. coli] (principal); I21.A1 Myocardial infarction type 2; G93.41 Metabolic encephalopathy; N17.0 Acute kidney failure with tubular necrosis; I50.33 Acute on chronic diastolic (congestive) heart failure; R65.21 Severe sepsis with septic shock; C64.9 Malignant neoplasm of unspecified kidney, except renal pelvis; E87.1 Hypo-osmolality and hyponatremia; D68.4 Acquired coagulation factor deficiency; E87.2 Acidosis; I13.0 Hypertensive heart and chronic kidney disease with heart failure and stage 1 through stage 4 chronic kidney disease, or unspecified chronic kidney disease; N13.6 Pyonephrosis; E87.6 Hypokalemia; K76.0 Fatty (change of) liver, not elsewhere classified; R62.7 Adult failure to thrive; N18.9 Chronic kidney disease, unspecified; F03.90 Unspecified dementia, unspecified severity, without behavioral disturbance, psychotic disturbance, mood disturbance, and anxiety; Z20.828 Contact with and (suspected) exposure to other viral communicable diseases; K75.9 Inflammatory liver disease, unspecified; N32.81 Overactive bladder; K21.9 Gastro-esophageal reflux disease without esophagitis; K29.70 Gastritis, unspecified, without bleeding; M19.90 Unspecified osteoarthritis, unspecified site; I48.0 Paroxysmal atrial fibrillation; E78.5 Hyperlipidemia, unspecified; C67.9 Malignant neoplasm of bladder, unspecified; D63.8 Anemia in other chronic diseases classified elsewhere; D69.59 Other secondary thrombocytopenia; M10.9 Gout, unspecified; B96.20 Unspecified Escherichia coli [E. coli] as the cause of diseases classified elsewhere; N28.1 Cyst of kidney, acquired; R31.9 Hematuria, unspecified; E88.09 Other disorders of plasma-protein metabolism, not elsewhere classified; T36.8X5A Adverse effect of other systemic antibiotics, initial encounter; Z85.528 Personal history of other malignant neoplasm of kidney; Z79.01 Long term (current) use of anticoagulants; Z79.899 Other long term (current) drug therapy; Y92.89 Other specified places as the place of occurrence of the external cause; Z88.0 Allergy status to penicillin
CPT/HCPCS: 36415; 70450; 71045; 76775; 78707; 80048; 80053; 80061; 80202; 80307; 81001; 82140; 82962; 83036; 83605; 83735; 83880; 83930; 83935; 84132; 84300; 84443; 84484; 84550; 85007; 85025; 85027; 85610; 85730; 87040; 87077; 87081; 87086; 87088; 87186; 92610; 93306; 97110; 97530; 99291; G0378; J1956; J2185; J2250; J2405; J2704; J3480; J3490; J7060; P9047